=== PATIENT | male | born 1995 | race African-American/Black ===

== ENCOUNTER 2018-05-29 23:12 | Emergency (ER) | payer SELFPAY ==
[2018-05-29 23:21] VITALS: BP 137/82
[2018-05-29] MEDS ORDERED: PROMETHAZINE HCL 25 MG TABLET PO ONE (23:34)
[2018-05-29] MEDS ORDERED: FAMOTIDINE 20 MG TABLET PO ONE (23:34)
--- NOTE | 2018-05-29 23:41 | ER Document Report ---
ED GI/ - General Chief Complaint: Abdominal pain with N/V Stated Complaint: VOMITING Time Seen by Provider: 05/29/18 23:26 Notes: Patient is a 23-year-old male that comes to the emergency department for chief complaint of upper abdominal pain and vomiting since yesterday. He states he has vomited 6 times. He denies diarrhea, reports normal bowel movements. He denies fever, flank pain, chest pain. He denies any daily medications, he denies any surgeries. Denies alcohol, reports he used to smoke, denies any street drugs. He states that he frequently gets nauseated, ever since he was treated for chlamydia months ago. He denies dysuria, discharge from the penis. Mother at bedside. TRAVEL OUTSIDE OF THE [place] IN LAST 30 DAYS: No - Related Data Allergies/Adverse Reactions: No Known Allergies Allergy (Verified 02/16/14 17:44) Past Medical History - General Information source: Patient - Social History Smoking Status: Former Smoker Frequency of alcohol use: None Drug Abuse: None Lives with: Family Family History: Reviewed & Not Pertinent, Other - UTI and kidney infections - Medical History Medical History: Negative Surgical Hx: Negative - Immunizations Immunizations up to date: Yes Hx Diphtheria, Pertussis, Tetanus Vaccination: Yes Review of Systems - Review of Systems Constitutional: No symptoms reported EENT: No symptoms reported Cardiovascular: No symptoms reported Respiratory: No symptoms reported Gastrointestinal: See HPI Genitourinary: See HPI Male Genitourinary: No symptoms reported Musculoskeletal: No symptoms reported Skin: No symptoms reported Hematologic/Lymphatic: No symptoms reported Neurological/Psychological: No symptoms reported Physical Exam - Vital signs Vitals: Temp Pulse Resp BP Pulse Ox 98.9 F 53 L 16 137/82 H 100 05/29/18 23:19 05/29/18 23:19 05/29/18 23:19 05/29/18 23:19 05/29/18 23:19 - Notes Notes: GENERAL: Alert, interacts well. No acute distress. HEAD: Normocephalic, atraumatic. EYES: Pupils equal, round, and reactive to light. Extraocular movements intact. ENT: Oral mucosa moist, tongue midline. Oropharynx unremarkable. Airway patent. Nares patent, no nasal septal hematoma, TM's intact. NECK: Full range of motion. Supple. Trachea midline. LUNGS: Clear to auscultation bilaterally, no wheezes, rales, or rhonchi. No respiratory distress. HEART: Regular rate and rhythm. No murmur ABDOMEN: Soft, non-tender. Non-distended. Bowel sounds present in all 4 quadrants. GENITOURINARY: Deferred EXTREMITIES: Moves all 4 extremities spontaneously. No edema, normal radial and dorsalis pedis pulses bilaterally. No cyanosis. BACK: no cervical, thoracic, lumbar midline tenderness. No saddle anesthesia, normal distal neurovascular exam. NEUROLOGICAL: Alert and oriented x3. Normal speech. [cranial nerves II through XII grossly intact]. PSYCH: Normal affect, normal mood. SKIN: Warm, dry, normal turgor. No rashes or lesions noted. Course - Re-evaluation Re-evalutation: Patient's abdomen is benign. Because of ongoing symptoms CMP and lipase were obtained but these were unremarkable. Vital signs unremarkable. He is very well-appearing. Asked patient if he wanted to be treated for chlamydia, he states that he would like to be. Chlamydia is positive. Patient states he has not been sexually active after having been diagnosed with chlamydia and then treated with azithromycin. Possible treatment failure. Patient was given Rocephin and will be placed on doxycycline instead. Patient requested I discussed this with his mother, this was discussed. Discussed follow-up and return precautions. They state understanding and agreement. - Vital Signs Vital signs: Temp Pulse Resp BP Pulse Ox 98.9 F 53 L 16 137/82 H 100 05/29/18 23:19 05/29/18 23:19 05/29/18 23:19 05/29/18 23:19 05/29/18 23:19 - Laboratory Result Diagrams: 05/29/18 23:45 Laboratory results interpreted by me: 05/29/18 05/29/18 23:45 23:53 Carbon Dioxide 31 H Chlamydia DNA (PCR) DETECTED H Discharge - Discharge Clinical Impression: Chlamydia Vomiting Qualifiers: Vomiting type: unspecified Vomiting Intractability: non-intractable Nausea presence: with nausea Qualified Code(s): R11.2 - Nausea with vomiting, unspecified Condition: Stable Disposition: HOME, SELF-CARE Additional Instructions: You are positive for chlamydia. Remaining evaluation does not show any concerning a normality's. Complete the doxycycline antibiotic course in addition to the Rocephin you were given. Follow-up with primary care. Return for any concerning symptoms including fever of 100.4 greater, abdominal pain, persistent vomiting, or any other concerning or worsening symptoms. Prescriptions: Doxycycline Hyclate 100 mg PO BID #14 capsule Promethazine HCl [Phenergan 25 mg Tablet] 25 mg PO Q6H PRN #20 tablet PRN Reason:
[2018-05-30 00:15] LABS: ALANINE AMINOTRANSFERASE 21 U/L (21-72); ALBUMIN 4.8 g/dL (3.5-5.0); ALKALINE PHOSPHATASE 62 U/L (38-126); ANION GAP 12 (5-19); ASPARTATE AMINO TRANSFERASE 34 U/L (17-59); BILIRUBIN,DIRECT 0.2 mg/dL (0.0-0.4); BLOOD UREA NITROGEN 10 mg/dL (7-20); CARBON DIOXIDE 31 mmol/L (22-30); CHLORIDE 101 mmol/L (98-107); GLUCOSE 92 mg/dL (75-110); LIPASE 177.5 U/L (23-300); POTASSIUM 4.3 mmol/L (3.6-5.0); SODIUM 143.8 mmol/L (137-145); TOTAL PROTEIN 7.3 g/dL (6.3-8.2)
[2018-05-30 01:33] LABS: CHLAM PCR DETECTED (NOT DETECT); GON PCR NOT DETECTED (NOT DETECT)
[2018-05-30] MEDS ORDERED: DOXYCYCLINE HYCLATE 100 MG TABLET PO ONE (01:47)
[2018-05-30] MEDS ORDERED: LIDOCAINE 1% INJ-PF (10 MG/ML) 30 ML SDV INJ ONE (01:48)
[2018-05-30] MEDS ORDERED: CEFTRIAXONE INJ 250 MG VIAL IM ONE (01:48)
== END 2018-05-30 02:08 | disposition home or self-care (01) ==
LOC: ER 23:12
DX: A74.9 Chlamydial infection, unspecified (principal); R10.10 Upper abdominal pain, unspecified; R11.2 Nausea with vomiting, unspecified; Z87.891 Personal history of nicotine dependence
CPT/HCPCS: 99284; 96372; 36415; 83690; 80053; 87491; 87591; J3490; J0696

== ENCOUNTER 2018-06-01 22:13 | Emergency (ER) | payer SELFPAY ==
[2018-06-01 22:18] VITALS: BP 145/92
[2018-06-01] MEDS ORDERED: ONDANSETRON HCL INJ/PF 4 MG/2 ML SDV IV ONE (22:26)
[2018-06-01] MEDS ORDERED: NORMAL SALINE 1000 ML 1,000 ML IV ONE (22:26)
[2018-06-01 22:56] LABS: ABSOLUTE LYMPHOCYTES (AUTO) 1.8 10^3/uL (0.5-4.7); ABSOLUTE MONOCYTES (AUTO) 0.5 10^3/uL (0.1-1.4); ABSOLUTE NEUT (AUTO) 5.6 10^3/uL (1.7-8.2); BASOPHILS % (AUTO) 0.6 % (0-2); EOSINOPHILS % (AUTO) 0.2 % (0-6); LYMPHOCYTES % (AUTO) 22.5 % (13-45); MEAN CORPUSCULAR HEMOGLOBIN 25.7 pg (27.0-33.4); MEAN CORPUSCULAR HGB CONC 32.6 g/dL (32.0-36.0); MEAN CORPUSCULAR VOLUME 79 fl (80-97); MONOCYTES % (AUTO) 5.9 % (3-13); PLATELET COUNT 166 10^3/uL (150-450); RED BLOOD COUNT 5.84 10^6/uL (4.35-5.55); RED CELL DISTRIBUTION WIDTH 14.7 % (11.5-14.0); SEGMENTED NEUTROPHILS % (AUTO) 70.8 % (42-78); TOTAL CELLS COUNTED % (AUTO) 100 %; WHITE BLOOD COUNT 7.9 10^3/uL (4.0-10.5)
[2018-06-01 23:15] LABS: ALANINE AMINOTRANSFERASE 19 U/L (21-72); ALKALINE PHOSPHATASE 63 U/L (38-126); ANION GAP 14 (5-19); ASPARTATE AMINO TRANSFERASE 35 U/L (17-59); BILIRUBIN,DIRECT 0.3 mg/dL (0.0-0.4); BILIRUBIN,TOTAL 1.1 mg/dL (0.2-1.3); BLOOD UREA NITROGEN 13 mg/dL (7-20); CALCIUM 9.8 mg/dL (8.4-10.2); CARBON DIOXIDE 30 mmol/L (22-30); CHLORIDE 97 mmol/L (98-107); GLUCOSE 108 mg/dL (75-110); LIPASE 65.7 U/L (23-300); POTASSIUM 3.7 mmol/L (3.6-5.0); SODIUM 140.7 mmol/L (137-145); TOTAL PROTEIN 8.1 g/dL (6.3-8.2)
[2018-06-01] MEDS ORDERED: MAG HYDROX/AL HYDROX/SIMETH SUSP 30 ML UDCUP PO ONE (23:37)
[2018-06-01] MEDS ORDERED: LIDOCAINE 2% VISCOUS SOLN 20 ML UDCUP PO ONE (23:37)
[2018-06-01] MEDS ORDERED: FAMOTIDINE 20 MG TABLET PO ONE (23:37)
[2018-06-01] MEDS ORDERED: METOCLOPRAMIDE HCL ORAL SOLN 10 MG/10 ML UDCUP PO ONE (23:37)
[2018-06-01] MEDS ORDERED: HYOSCYAMINE SULFATE 0.125 MG TABLET PO ONE (23:38)
--- NOTE | 2018-06-01 23:41 | ER Document Report ---
ED General - General Chief Complaint: Abdominal Pain Stated Complaint: VOMITING Time Seen by Provider: 06/01/18 22:26 Notes: Patient is a 23-year-old male without chronic medical problems who presents with 6 days of nausea, vomiting and epigastric abdominal pain. He states the symptoms started gradually and have been relatively unchanged over the past 3-4 days but have not improved. He was seen in the emergency department several days ago for the same, had an unremarkable laboratory evaluation at that point and was discharged home without medication to be on doxycycline to treat chlamydia. The patient states that his abdominal pain as a cramping, intermittent, aching pain generally before he vomits. He denies fever, diarrhea or lower abdominal pain. No headache, neck pain, cough or sputum production. States he has had similar symptoms in the past with gastritis and reflux but is not currently taking any medications for this condition. TRAVEL OUTSIDE OF THE [place] IN LAST 30 DAYS: No - Related Data Allergies/Adverse Reactions: No Known Allergies Allergy (Verified 06/02/18 00:17) Past Medical History - General Information source: Patient - Social History Smoking Status: Never Smoker Chew tobacco use (# tins/day): No Frequency of alcohol use: None Drug Abuse: None Lives with: Parents Family History: Reviewed & Not Pertinent, Other - UTI and kidney infections Patient has suicidal ideation: No Patient has homicidal ideation: No Renal/ Medical History: Denies: Hx Peritoneal Dialysis - Immunizations Immunizations up to date: Yes Hx Diphtheria, Pertussis, Tetanus Vaccination: Yes Review of Systems - Review of Systems Notes: Constitutional: Negative for fever. HENT: Negative for sore throat. Eyes: Negative for visual changes. Cardiovascular: Negative for chest pain. Respiratory: Negative for shortness of breath. Gastrointestinal: Positive for abdominal pain and vomiting Genitourinary: Negative for dysuria. Musculoskeletal: Negative for back pain. Skin: Negative for rash. Neurological: Negative for headaches, weakness or numbness. 10 point ROS negative except as marked above and in HPI. Physical Exam - Vital signs Vitals: Temp Pulse Resp BP Pulse Ox 99.2 F 52 L 16 145/92 H 98 06/01/18 22:17 06/01/18 22:17 06/01/18 22:17 06/01/18 22:17 06/01/18 22:17 Interpretation: Bradycardic Notes: PHYSICAL EXAMINATION: GENERAL: Well-appearing, well-nourished and in no acute distress. HEAD: Atraumatic, normocephalic. EYES: Pupils equal round and reactive to light, extraocular movements intact, sclera anicteric, conjunctiva are normal. ENT: nares patent, oropharynx clear without exudates. Moderate dry mucous membranes. NECK: Normal range of motion, supple without lymphadenopathy LUNGS: Breath sounds clear to auscultation bilaterally and equal. No wheezes rales or rhonchi. HEART: Regular rate and rhythm without murmurs ABDOMEN: Soft, minimal epigastric abdominal tenderness to palpation but no other localized areas of abdominal tenderness, normoactive bowel sounds. No guarding, no rebound. No masses appreciated. EXTREMITIES: Normal range of motion, no pitting or edema. No cyanosis. NEUROLOGICAL: No focal neurological deficits. Moves all extremities spontaneously and on command. PSYCH: Normal mood, normal affect. SKIN: Warm, Dry, normal turgor, no rashes or lesions noted. Course - Re-evaluation Re-evalutation: 06/01/18 23:38 Patient presents with epigastric abdominal pain with associated reflux symptoms most consistent with likely gastritis. Patient has no focal abdominal tenderness on examination. Right upper quadrant ultrasound does not demonstrate any evidence of acute cholecystitis or cholelithiasis. Lipase is normal. No LFT changes. Based on history and exam, I do not suspect ACS, pulmonary embolus, SBO, mesenteric ischemia, acute pancreatitis, biliary pathology, or an abdominal aortic dissection. Patient has had improvement of symptoms here with a GI cocktail. At this time will discharge with return precautions and follow-up recommendations. Verbal discharge instructions given a the bedside and opportunity for questions given. Medication warnings reviewed. Patient is in agreement with this plan and has verbalized understanding of return precautions and the need for primary care follow-up in the next 24-72 hours. - Vital Signs Vital signs: Temp Pulse Resp BP Pulse Ox 99.2 F 52 L 16 145/92 H 98 06/01/18 22:17 06/01/18 22:17 06/01/18 22:17 06/01/18 22:17 06/01/18 22:17 - Laboratory Result Diagrams: 06/01/18 22:49 06/01/18 22:49 Laboratory results interpreted by me: 11/16/18 11/16/18 22:49 22:49 RBC 5.84 H MCV 79 L MCH 25.7 L RDW 14.7 H Chloride 97 L ALT 19 L Discharge - Discharge Clinical Impression: Epigastric abdominal pain Nausea and vomiting Qualifiers: Vomiting type: unspecified Vomiting Intractability: non-intractable Qualified Code(s): R11.2 - Nausea with vomiting, unspecified Gastritis Qualifiers: Gastritis type: unspecified gastritis Chronicity: acute Gastritis bleeding: presence of bleeding unspecified Qualified Code(s): K29.00 - Acute gastritis without bleeding Condition: Good Disposition: HOME, SELF-CARE Additional Instructions: Your symptoms appear to be most consistent with stomach or upper intestinal irritation. Please begin taking famotidine 40 mg in the morning and 40 mg at night. Please also take the Carafate as prescribed. You may also take Zofran as needed for nausea and vomiting. You may also take medicine such as Pepto- Bismol or Tums to assist with your pain. Please return to emergency department immediately if you have worsening of your pain, shortness of breath, vomiting, become unable to exert yourself due to pain or difficulty breathing, you pass out, or have any pain that radiates into your arms, jaw, or back. Please also return if you have any additional symptoms that are concerning to you. As we have discussed, the most important thing is lifestyle changes. You need to avoid smoking, sodas, tea, coffee, alcohol, spicy foods, and acidic foods such as citrus fruits, tomato based products, berries, and most fruit juices. Prescriptions: Famotidine 40 mg PO BID #60 tablet Sucralfate [Carafate 1 gm Tablet] 1 gm PO ACHS #120 tablet
[2018-06-02] MEDS ORDERED: HYOSCYAMINE SULFATE 0.125 MG TABLET ONE (00:09)
--- NOTE | 2018-06-02 00:18 | RADIOLOGY REPORT (SQ) ---
EXAM DESCRIPTION: US ABDOMEN LIMITED COMPLETED DATE/TME: 06/01/2018 23:36 CLINICAL HISTORY: 23 years, Male, upper abdominal pain COMPARISON: None. TECHNIQUE: Limited ultrasound of the right upper quadrant LIMITATIONS: None. FINDINGS: The liver is homogenous in echotexture without focal lesion. No gallstones or gallbladder wall thickening. The CBD measures 2.8 mm. The visualized pancreas is unremarkable. The visualized right kidney is unremarkable. There is no ascites. Visualized abdominal aorta is unremarkable. IMPRESSION: Unremarkable exam 2010 [facility] [employer]- All Rights Reserved
[2018-06-02] MEDS ORDERED: ONDANSETRON ODT 4 MG TAB (6 TAB/ER DISP) PO PRN (01:15)
== END 2018-06-02 01:39 | disposition home or self-care (01) ==
LOC: ER 22:13
DX: K29.00 Acute gastritis without bleeding (principal); R10.13 Epigastric pain; R11.2 Nausea with vomiting, unspecified; Z87.19 Personal history of other diseases of the digestive system
CPT/HCPCS: 99284; 96361; 96374; 36415; 83690; 85025; 80053; 76705; J3490 ×2; J2405; J7030